=== PATIENT | male | born 1980 | race Caucasian/White ===

== ENCOUNTER 2025-06-21 09:11 | Outpatient (CLI) | payer OTHER ==
--- NOTE | 2025-06-21 11:58 | RADIOLOGY REPORT ---
INDICATION: ARTHRITIS; back pain COMPARISON: None TECHNIQUE: 3 views of the lumbar spine were obtained. FINDINGS: The lumbar vertebral alignment is normal. Mild multilevel degenerative disc disease of the lumbosacral spine. No acute fracture, vertebral compression deformity or aggressive osseous lesions. The paravertebral soft tissues are grossly unremarkable. IMPRESSION: No acute fracture.
== END 2025-06-21 23:59 | disposition home or self-care (01) ==
LOC: RAD 09:11
PROVIDERS: ATTEND Chiropractor
DX: M51.379 Other intervertebral disc degeneration, lumbosacral region without mention of lumbar back pain or lower extremity pain (principal); M47.817 Spondylosis without myelopathy or radiculopathy, lumbosacral region
CPT/HCPCS: 72100